=== PATIENT | male | born 1965 | race Caucasian/White ===

== ENCOUNTER 2023-10-31 11:40 | Emergency (ER) | payer MEDICARE, OTHER ==
[2023-10-31] MEDS: LACTATED RINGERS SOLUTION 1000 ML INFUS.BAG IV ONE (11:58)
[2023-10-31 12:03] VITALS: BP 116/76; PULSE 62; RESP 16; TEMP 97.9; BMI 25.3
== END 2023-10-31 13:18 | disposition home or self-care (01) ==
LOC: FER 11:40
DX: R55 Syncope and collapse (principal)
CPT/HCPCS: 93005; 99282-25